=== PATIENT | female | born 1955 | race African-American/Black ===

== ENCOUNTER → 2021-11-19 10:47 | Outpatient (BNVA) | payer MEDICARE, SELFPAY | PROVIDERS: PCP Internal Medicine; Visit Provider Student in an Organized Health Care Education/Training Program | DX: M25.532 Pain in left wrist (principal); M17.0 Bilateral primary osteoarthritis of knee | CPT/HCPCS: 99202 ==

== ENCOUNTER 2021-11-19 12:02 | Outpatient (REF) | payer OTHER, SELFPAY ==
--- NOTE | ~2021-11-19 | XR_ITS ---
EXAMINATION: CR X-RAY HAND AND WRIST BILATERAL CLINICAL INFORMATION: Bilateral hand and wrist pain. COMPARISON: None TECHNIQUE: 4 views each of the bilateral hands and wrists were obtained. FINDINGS: Minimal first carpometacarpal and triscaphe degenerative joint changes are seen bilaterally. There is no acute fracture or dislocation. The metatarsals and phalanges are intact. The carpal bones are normally aligned. The distal radius and ulna are intact. The soft tissues are unremarkable. XR/XR hand wrist RT IMPRESSION: Minimal degenerative changes in the lateral wrist bilaterally suggestive of osteoarthritis. No acute abnormality.
--- NOTE | ~2021-11-19 | XR_ITS ---
EXAMINATION: CR X-RAY HAND AND WRIST BILATERAL CLINICAL INFORMATION: Bilateral hand and wrist pain. COMPARISON: None TECHNIQUE: 4 views each of the bilateral hands and wrists were obtained. FINDINGS: Minimal first carpometacarpal and triscaphe degenerative joint changes are seen bilaterally. There is no acute fracture or dislocation. The metatarsals and phalanges are intact. The carpal bones are normally aligned. The distal radius and ulna are intact. The soft tissues are unremarkable. XR/XR hand wrist LT IMPRESSION: Minimal degenerative changes in the lateral wrist bilaterally suggestive of osteoarthritis. No acute abnormality.
[2021-11-19 13:35] LABS: MANUAL DIFF FLAG NO
[2021-11-19 13:40] LABS: Basophils Percent Auto 0.4 % (0-2); Eosinophils Absolute Auto 0.1 X10*3/uL (0.0-0.4); Eosinophils Percent Auto 1.2 % (0-4); Hematocrit 39.6 % (37.0-47.0); Hemoglobin 12.6 g/dl (12.0-16.0); Imm Gran Abs Auto 0.01 X10*3/uL (0.00-0.03); Imm Gran Pct Auto 0.2 % (0.0-0.4); Lymphocytes Absolute Auto 1.6 X10*3/uL (1.2-4.9); Mean Corpuscular HGB Conc 31.8 g/dl (31.0-35.0); Mean Corpuscular Hemoglobin 27.6 pg (27.0-33.0); Mean Corpuscular Volume 86.8 fL (80.0-98.0); Mean Platelet Volume 9.6 fL (9.4-12.3); Monocytes Absolute Auto 0.4 X10*3/uL (0.1-1.2); Monocytes Percent Auto 6.2 % (2-11); Neutrophils Absolute Auto 3.6 x10*3/uL (2.0-8.3); Platelet Count 225 X10*3/uL (160-400); Red Blood Count 4.56 X10*6/uL (4.20-5.50); Red Cell Distribution Width 14.2 % (11.0-16.0); White Blood Count 5.6 X10*3/uL (4.8-10.8)
[2021-11-19 14:07] LABS: Alanine Aminotransferase 9 U/L (0-31); Albumin Level 4.2 g/dL (3.5-5.0); Alkaline Phosphatase 80 U/L (39-117); Anion Gap 16 (12-20); Aspartate Amino Transferase 17 U/L (5-31); Bilirubin Total 0.5 mg/dL (0.0-1.0); Blood Urea Nitrogen 12 mg/dL (9-16); C Reactive Protein 0.44 mg/dL (< or = 0.50); Calcium 9.7 mg/dL (8.4-10.2); Carbon Dioxide 28 mmol/L (22-29); Chloride 102 mmol/L (96-108); Estimated Glomerular Filt Rate 55; Glucose Random 87 mg/dL (60-115); Potassium 4.7 mmol/L (3.3-5.1); Sodium 141 mmol/L (135-145); Total Protein 7.3 g/dL (6.5-8.0)
[2021-11-19 14:22] LABS: Erythrocyte Sedimentation Rate 28 MM/HR (0-20)
[2021-11-19 14:25] LABS: Rheumatoid Factor < 15.0 IU/mL (<15.0)
[2021-11-21 12:57] LABS: Anti Nuclear Antibody Screen NEGATIVE (NEGATIVE)
[2021-11-22 16:32] LABS: Cyclic Citrullinated Peptide <16 UNITS
== END 2021-11-19 12:03 | disposition home or self-care (01) ==
LOC: HO.10HDL 12:02
PROVIDERS: Visit Provider Student in an Organized Health Care Education/Training Program
DX: M25.542 Pain in joints of left hand (principal); M25.541 Pain in joints of right hand
CPT/HCPCS: 36415; 73110; 73130; 80053; 85025; 85652; 86038; 86039; 86140; 86200; 86431